=== PATIENT | female | born 1955 | race Caucasian/White ===

== ENCOUNTER 2020-08-10 13:51 | Emergency (ER) | payer MEDICAID ==
--- NOTE | 2020-08-10 16:31 | ED Physician Documentation ---
History of Present Illness - Stated complaint Stated Complaint: MHE - Chief complaint Chief Complaint: Neuro - History obtained from History obtained from: Patient, Family - Additonal information Additional information: Patient comes emergency department complaining of feeling anxious and not being able to remember any. The son states he is very concerned about the patient because he did not realize she was on medications for anxiety and depression when she moved in with him a couple of months ago, and that he has noticed a significant decline over the last month. He states that the patient gets extremely anxious and that she stays up all night trying to clean the house. She normally likes to cook but son states the patient has lost interest in doing this over this period of time. He states that she tried to cut her wrists recently and that today she told him to just shoot her because she is tired of living like this. The patient had previously lived in [place] with a "friend" who apparently is also roommate. The patient came out to visit her son, and due to some strife that had been going on with the friend/roommate, and would it was determined the patient would be better off living with her son. The patient states that her only recent stressor was the falling out with her friend, which still has not been resolved. She states that she just feels extremely anxious, but cannot really figure out why. She states she is concerned because she cannot remember anything. She has not been sleeping. Patient states she has had issues with depression and anxiety previously, as well as insomnia, but it has never been this bad. She states that normally when she could not sleep, she would just read a book and would eventually fall asleep. The patient states she is tried that this time and it does not work. She also has been on various medications over the years which were prescribed both by primary doctor and psychiatrist in [place], but she is not on any of these medications now. The patient states she has never had to be admitted for psychiatric issues. She denies any prior suicidal attempts. Review of Systems Ten Systems: 10 systems reviewed and negative Constitutional: reports: Reviewed and negative Eyes: reports: Reviewed and negative Ears: reports: Reviewed and negative Nose: reports: Reviewed and negative Throat: reports: Reviewed and negative Cardiac: reports: Reviewed and negative Respiratory: reports: Reviewed and negative GI: reports: Reviewed and negative : reports: Reviewed and negative Skin: reports: Reviewed and negative Musculoskeletal: reports: Reviewed and negative Neurologic: reports: Reviewed and negative Psychiatric: reports: Depressed, Suicidal, Anxiety, Insomnia Endocrine: reports: Reviewed and negative Immunocompromised: reports: Reviewed and negative PD PAST MEDICAL HISTORY - Present Medications Home Medications: Ambulatory Orders Medication Instructions Recorded Confirmed ALPRAZolam [Alprazolam] 0.5 mg PO BID 08/10/20 08/10/20 Cyclobenzaprine [Flexeril] 10 mg PO Q12H PRN 08/10/20 08/10/20 Losartan Potassium 100 mg PO DAILY 08/10/20 08/10/20 Tramadol HCl [Ultram] 50 mg PO Q8H PRN 08/10/20 08/10/20 bisoproloL fumarate [Bisoprolol 10 mg PO DAILY 08/10/20 08/10/20 Fumarate] - Allergies Allergies/Adverse Reactions: Allergies Allergy/AdvReac Type Severity Reaction Status Date / Time bupropion Allergy Dizziness Verified 08/10/20 13:57 clotiazepam Allergy Dizziness Verified 08/10/20 13:57 gabapentin Allergy Nausea Verified 08/10/20 13:57 hornet venom Allergy Anaphylaxis Verified 08/10/20 13:57 meloxicam [From Mobic] Allergy Nausea Verified 08/10/20 13:57 morphine Allergy Nausea Verified 08/10/20 13:57 PD ED PE NORMAL - Vitals Vital signs reviewed: Yes - General General: Alert and oriented X 3, Well developed/nourished, Other (Patient appears anxious and slightly withdrawn but otherwise no apparent distress. 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, No motor deficit, No sensory deficit, Normal speech - Psych Psych: Other (Patient is slightly withdrawn and appears anxious) Results - Vitals Vitals: Vital Signs - 24 hr 08/10/20 08/10/20 13:57 20:43 Temperature 36.5 C Heart Rate 125 H 94 Respiratory 16 22 Rate Blood Pressure 152/90 H 157/86 H O2 Saturation 98 95 Oxygen O2 Source Room air - Labs Labs: Laboratory Tests 08/10/20 08/10/20 08/10/20 16:24 16:24 16:24 WBC 7.6 RBC 4.10 L Hgb 13.3 Hct 39.2 MCV 95.6 MCH 32.4 H MCHC 33.9 RDW 12.4 Plt Count 292 MPV 9.8 Neut # (Auto) 5.6 Lymph # (Auto) 1.4 L [place] # (Auto) 0.5 Eos # (Auto) 0.0 Baso # (Auto) 0.0 Absolute Nucleated RBC 0.00 Nucleated RBC % 0.0 Sodium 139 Potassium 3.7 Chloride 105 Carbon Dioxide 23 Anion Gap 11.0 BUN 12 Creatinine 0.5 Estimated GFR (MDRD) 124 Glucose 90 Calcium 9.3 Total Bilirubin 0.8 AST 22 ALT 34 Alkaline Phosphatase 66 Total Protein 7.3 Albumin 4.4 Globulin 2.9 Albumin/Globulin Ratio 1.5 Lipase 40 TSH 0.96 Urine Color Urine Clarity Urine pH Ur Specific [place] Urine Protein Urine Glucose (UA) Urine Ketones Urine Occult Blood Urine Nitrite Urine Bilirubin Urine Urobilinogen Ur Leukocyte Esterase Urine RBC Urine WBC Ur Squamous Epith Cells Urine Bacteria Urine Mucus Ur Microscopic Review Urine Culture Comments Urine Opiates Screen Ur Oxycodone Screen Urine Methadone Screen Ur Propoxyphene Screen Ur Barbiturates Screen Ur Tricyclics Screen Ur Phencyclidine Scrn Ur Amphetamine Screen U Methamphetamines Scrn U Benzodiazepines Scrn Urine Cocaine Screen U Cannabinoids Screen 08/10/20 20:33 WBC RBC Hgb Hct MCV MCH MCHC RDW Plt Count MPV Neut # (Auto) Lymph # (Auto) [place] # (Auto) Eos # (Auto) Baso # (Auto) Absolute Nucleated RBC Nucleated RBC % Sodium Potassium Chloride Carbon Dioxide Anion Gap BUN Creatinine Estimated GFR (MDRD) Glucose Calcium Total Bilirubin AST ALT Alkaline Phosphatase Total Protein Albumin Globulin Albumin/Globulin Ratio Lipase TSH Urine Color YELLOW Urine Clarity HAZY Urine pH 6.0 Ur Specific [place] 1.020 Urine Protein NEGATIVE Urine Glucose (UA) NEGATIVE Urine Ketones 40 H Urine Occult Blood TRACE-INTA Urine Nitrite NEGATIVE Urine Bilirubin NEGATIVE Urine Urobilinogen 0.2 (NORMAL) Ur Leukocyte Esterase LARGE H Urine RBC 0-5 Urine WBC 11-25 H Ur Squamous Epith Cells FEW Squamous Urine Bacteria Few Urine Mucus Few Strands Ur Microscopic Review INDICATED Urine Culture Comments INDICATED Urine Opiates Screen NEGATIVE Ur Oxycodone Screen NEGATIVE Urine Methadone Screen NEGATIVE Ur Propoxyphene Screen NEGATIVE Ur Barbiturates Screen NEGATIVE Ur Tricyclics Screen NEGATIVE Ur Phencyclidine Scrn NEGATIVE Ur Amphetamine Screen NEGATIVE U Methamphetamines Scrn NEGATIVE U Benzodiazepines Scrn POSITIVE H Urine Cocaine Screen NEGATIVE U Cannabinoids Screen NEGATIVE PD MEDICAL DECISION MAKING - ED course Complexity details: reviewed results, re-evaluated patient, considered differential, d/w patient, d/w family ED course: I discussed with patient and son that we do a social work consult and that the patient would be medically cleared for potential inpatient treatment. She was seen initially by professor of social work in the ED, and process has been started to find pt an inpatient psychiatric bed. Pt has been signed out to Dr. Hayes, pending placement.
[2020-08-10 16:33] LABS: BASOPHILS % (AUTO) 0.4 %; EOSINOPHILS % (AUTO) 0.4 %; HGB - HEMOGLOBIN 13.3 g/dL (12.0-16.0); LYMPHOCYTES # (AUTO) 1.4 10^3/uL (1.5-3.5); LYMPHOCYTES % (AUTO) 18.2 %; MEAN CORPUSCULAR HEMOGLOBIN 32.4 pg (27.0-31.0); MEAN CORPUSCULAR HGB CONC 33.9 g/dL (32.0-36.0); MEAN CORPUSCULAR VOLUME 95.6 fL (81.0-99.0); MEAN PLATELET VOLUME 9.8 fL (7.9-10.8); MONOCYTES # (AUTO) 0.5 10^3/uL (0.0-1.0); MONOCYTES % (AUTO) 6.5 %; NEUTROPHILS # (AUTO) 5.6 10^3/uL (1.5-6.6); NEUTROPHILS % (AUTO) 74.2 %; PLT - PLATELET COUNT 292 10^3/uL (130-450); RED CELL DISTRIBUTION WIDTH 12.4 % (12.0-15.0); WHITE BLOOD COUNT 7.6 x10^3/uL (4.8-10.8)
[2020-08-10 16:44] LABS: ALBUMIN 4.4 g/dL (3.2-5.5); ALBUMIN/GLOBULIN RATIO 1.5 (1.0-2.2); BILIRUBIN,TOTAL 0.8 mg/dL (0.2-1.0); CALCIUM 9.3 mg/dL (8.5-10.3); CREATININE 0.5 mg/dL (0.4-1.0); TOTAL PROTEIN 7.3 g/dL (6.7-8.2)
[2020-08-10 20:40] LABS: MUDS CUTOFF CONCENTRATIONS CUTOFF CONC BELOW:
[2020-08-10 20:43] LABS: BILIRUBIN,URINE NEGATIVE (NEGATIVE); GLUCOSE, URINE (UA) NEGATIVE (NEGATIVE); KETONES,URINE (UA) 40 mg/dL (NEGATIVE); LEUKOCYTE ESTERASE, URINE LARGE (NEGATIVE); NITRITE,URINE NEGATIVE (NEGATIVE); OCCULT BLOOD,URINE TRACE-INTA (NEGATIVE); PROTEIN,URINE NEGATIVE (NEGATIVE); UROBILINOGEN,URINE 0.2 (NORMAL) E.U./dL (NORMAL)
[2020-08-10 20:48] LABS: CLARITY,URINE HAZY (CLEAR)
[2020-08-10 20:50] LABS: BACTERIA,URINE Few /HPF (None Seen); MUCUS,URINE Few Strands; RBC,URINE 0-5 /HPF (0-5); SQUAMOUS EPITHELIAL CELL,UR FEW Squamous (<= Few)
[2020-08-10 20:53] LABS: AMPHETAMINE SCREEN,URINE NEGATIVE (NEGATIVE); BENZODIAZEPINES SCREEN, URINE POSITIVE (NEGATIVE); COCAINE SCREEN URINE NEGATIVE (NEGATIVE); METHADONE SCREEN, URINE NEGATIVE (NEGATIVE); METHAMPHETAMINES SCREEN, URINE NEGATIVE (NEGATIVE); OPIATE SCREEN, URINE NEGATIVE (NEGATIVE); OXYCODONE SCREEN, URINE NEGATIVE (NEGATIVE); PROPOXYPHENE SCREEN, URINE NEGATIVE (NEGATIVE); TRICYCLIC ANTIDEPRESSANT,URINE NEGATIVE (NEGATIVE)
[2020-08-10] MEDS ORDERED: LORazepam 0.5 MG TABLET PO STA (21:00)
--- NOTE | 2020-08-10 21:50 | CT Report ---
PROCEDURE: HEAD WO INDICATIONS: recent fall, [place] TECHNIQUE: Noncontrast 4.5 mm thick angled axial sections acquired from the foramen magnum to the vertex. For r adiation dose reduction, the following was used: automated exposure control, adjustment of mA and/or kV according to patient size. COMPARISON: None. FINDINGS: Image quality: Excellent. CSF spaces: Basal cisterns are patent. No extra-axial fluid collections. Ventricles are normal in size and shape. Brain: No midline shift. No intracranial masses or hemorrhage. Doran-white matter interface is norm al. Skull and face: Calvarium and visualized facial bones are intact, without suspicious lesions. Sinuses: Visualized sinuses and mastoids are clear. IMPRESSION: 1. No acute intracranial process. Reviewed by: Bushra Ward MD on 08/10/2020 9:48 PM PDT Approved by: Bushra Ward MD on 08/10/2020 9:48 PM PDT Station ID: [id number]
[2020-08-10] MEDS ORDERED: traMADol 50 MG TABLET PO STA (22:21)
[2020-08-11] MEDS ORDERED: LORazepam 0.5 MG TABLET PO STA (05:14)
[2020-08-11 05:45] LABS: ACETAMINOPHEN < 10 ug/mL (10-30); SALICYLATE < 6.0 mg/dL
[2020-08-11] MEDS ORDERED: NITROFURANTOIN MACRO 100 MG CAPSULE PO SCH (09:00)
--- NOTE | 2020-08-11 12:34 | ED Physician Documentation ---
ED Addendum - Addendum Addendum: 08/11/20 12:33 Patient handed down in signout, here for voluntary psychiatric hospitalization. Social work saw her and arranged for a bed at [facility] under the care of Dr. Delgado and rosas were completed. She is stable for transport. Disposition transfer to psychiatric facility Condition stable Diagnosis: 1. Anxiety 2. Depression
[2020-08-11] MEDS ORDERED: LORazepam 1 MG TABLET PO STA (12:59)
[2020-08-11 13:38] VITALS: BP 135/87
== END 2020-08-11 14:40 ==
LOC: ED 13:51
DX: F32.9 Major depressive disorder, single episode, unspecified (principal); F41.9 Anxiety disorder, unspecified; R45.851 Suicidal ideations; Z20.828 Contact with and (suspected) exposure to other viral communicable diseases
CPT/HCPCS: 36415; 70450; 80053; 80306; 80307; 80320; 80329; 81001; 83690; 84443; 85025; 87077; 87086; 87181; 87635; 99283; 99285; A9270; J8499; 81003

== ENCOUNTER 2020-11-30 12:30 | Outpatient (CLI) | payer MEDICAID ==
--- NOTE | 2020-12-08 11:44 | Mammography Report ---
BILATERAL DIGITAL SCREENING MAMMOGRAM 3D/2D: 11/30/2020 CLINICAL: Routine screening. No prior exams were available for comparison. There are scattered fibroglandular elements in both br easts. There is an irregular high density asymmetry with an indistinct margin in the right breast at 1 o'cynthia ck posterior depth. There also is a round asymmetry with an obscured and indistinct margin in the right breast anterior d epth central to the nipple seen on the craniocaudal view only. No other significant masses, calcifications, or other findings are seen in either breast. IMPRESSION: INCOMPLETE: NEEDS ADDITIONAL IMAGING EVALUATION The irregular high density asymmetry in the right breast at 1 o'clock posterior depth most likely is a lymph node and is indeterminate. Additional views with possible ultrasound are recommended. The round asymmetry in the right breast anterior depth central to the nipple seen on the craniocaudal view only is indeterminate. Additional views with possible ultrasound are recommended. This exam was interpreted at Station ID: [id number]. NOTE: For mammograms, a report in lay terms will be sent to the patient. Approximately 15% of breast malignancies will not be visualized mammographically. In the management of a palpable breast mass, a negative mammogram must not discourage biopsy of a clinically suspicious lesion. Electronically Signed By: Griselda barillas/:12/07/2020 12:44:12 ACR BI-RADS Category 0: Incomplete 3340F PARENCHYMAL PATTERN: (A) - The breast(s) demonstrate(s) scattered fibroglandular densities. BI-RADS CATEGORY: (0) - 0 Mammo and [place] [id number] Immediate follow-up LATERALITY: (B)
== END 2020-11-30 12:31 | disposition home or self-care (01) ==
LOC: DI.N 12:30
DX: Z12.31 Encounter for screening mammogram for malignant neoplasm of breast (principal); N64.89 Other specified disorders of breast

== ENCOUNTER 2020-12-29 10:11 | Outpatient (CLI) | payer MEDICARE, MEDICAID ==
--- NOTE | 2020-12-30 08:37 | Mammography Report ---
UNILATERAL RIGHT DIGITAL DIAGNOSTIC MAMMOGRAM 3D/2D: 12/29/2020 CLINICAL: Patient returns today to evaluate a focal asymmetry in the right breast. Comparison is made to exam dated: 11/30/2020 mammogram - [facility]. There are scat tered fibroglandular elements in right breast. With focal spot compression, and additional views, the 8 mm round asymmetry seen anteriorly in the re troareolar region on screening mammography partially resolves. This is not confirmed with additional views. The posterior asymmetry on screening mammography is a benign lymph node in the right breast at 1 o'cl ock posterior depth. This is seen in additional views. No other significant masses or calcifications are seen in the breast. IMPRESSION: INCOMPLETE: NEEDS ADDITIONAL IMAGING EVALUATION The 8 mm round asymmetry in the right breast anterior depth central to the nipple seen on the cranioc audal view only is indeterminate. An ultrasound is recommended. This was performed immediately foll owing this exam. The posterior asymmetry on screening is seen in additional views as a benign lymph node. This exam was interpreted at Station ID: [id number]. NOTE: For mammograms, a report in lay terms will be sent to the patient. Approximately 15% of breast malignancies will not be visualized mammographically. In the management of a palpable breast mass, a negative mammogram must not discourage biopsy of a clinically suspicious lesion. Electronically Signed By: Griselda barillas/:12/29/2020 11:15:56 ACR BI-RADS Category 0: Incomplete 3340F PARENCHYMAL PATTERN: (A) - The breast(s) demonstrate(s) scattered fibroglandular densities. BI-RADS CATEGORY: (0) - 0 Ultrasound [id number] Immediate follow-up LATERALITY: (B)
--- NOTE | 2020-12-30 08:37 | Ultrasound Report ---
LIMITED ULTRASOUND OF RIGHT BREAST: 12/29/2020 CLINICAL: Patient returns today to evaluate a focal asymmetry in the right breast. Comparison is made to exams dated: 12/29/2020 mammogram and 11/30/2020 mammogram - [facility]. Color flow ultrasound of the right breast retroareolar was performed. Doran scale images of the real- time examination were reviewed. No significant abnormalities were seen sonographically in the right breast. Specifically, no finding to correspond to the patient's indistinct, screening mammographic abnormality. IMPRESSION: PROBABLY BENIGN There is no sonographic correlate to the patient's screening mammography asymmetry. A follow-up right mammogram in 6 months is recommended to demonstrate stability. Findings and recommendations were conveyed to the patient at time of exam. This exam was interpreted at Station ID: [id number]. Electronically Signed By: Griselda barillas/:12/29/2020 12:07:28 Ultrasound BI-RADS: 3 Probably benign BI-RADS CATEGORY: (3) - 3 Mammogram [id number] 6 month follow-up LATERALITY: (R)
== END 2020-12-29 10:12 | disposition home or self-care (01) ==
LOC: DI 10:11
PROVIDERS: ATTEND Physician Assistant
DX: R92.2 Inconclusive mammogram (principal)

== ENCOUNTER 2021-07-08 09:01 | Outpatient (CLI) | payer MEDICARE, MEDICAID | END 2021-07-08 23:59 | disposition home or self-care (01) | LOC: LAB.N 09:01 | PROVIDERS: ATTEND Physician Assistant Medical | DX: R30.0 Dysuria (principal) | CPT/HCPCS: 87086 ==

== ENCOUNTER 2021-07-11 17:00 | Outpatient (CLI) | payer MEDICARE, MEDICAID | END 2021-07-11 23:59 | disposition home or self-care (01) | LOC: LAB 17:00 | PROVIDERS: ATTEND Physician Assistant Medical | DX: N30.00 Acute cystitis without hematuria (principal) | CPT/HCPCS: 87086 ==

== ENCOUNTER 2021-07-29 08:00 | Outpatient (CLI) | payer MEDICARE, MEDICAID ==
[2021-07-29 23:32] LABS: BACTERIAL VAGINOSIS DNA NEGATIVE (NEGATIVE); CANDIDA GLABRATA DNA NEGATIVE (NEGATIVE); CANDIDA GROUP DNA NEGATIVE (NEGATIVE); CANDIDA KRUSEI DNA NEGATIVE (NEGATIVE); TRICHOMONAS VAGINALIS DNA NEGATIVE (NEGATIVE)
[2021-07-30 17:34] LABS: CHLAMYDIA TRACHOMATIS DNA NEGATIVE (NEGATIVE); NEISSERIA GONORRHOEAE DNA NEGATIVE (NEGATIVE); TRICHOMONAS VAGINALIS DNA NEGATIVE (NEGATIVE)
== END 2021-07-29 23:59 | disposition home or self-care (01) ==
LOC: LAB.N 08:00
PROVIDERS: ATTEND Family Medicine
DX: R39.9 Unspecified symptoms and signs involving the genitourinary system (principal)
CPT/HCPCS: 87086; 87491; 87591; 87661; 87801

== ENCOUNTER 2021-08-04 08:31 | Emergency (ER) | payer MEDICARE, MEDICAID ==
[2021-08-04 09:15] LABS: BASOPHILS # (AUTO) 0.1 10^3/uL (0.0-0.1); BASOPHILS % (AUTO) 0.9 %; EOSINOPHILS # (AUTO) 0.2 10^3/uL (0.0-0.7); EOSINOPHILS % (AUTO) 2.9 %; HCT - HEMATOCRIT 39.3 % (37.0-47.0); HGB - HEMOGLOBIN 13.1 g/dL (12.0-16.0); LYMPHOCYTES # (AUTO) 1.5 10^3/uL (1.5-3.5); LYMPHOCYTES % (AUTO) 22.8 %; MEAN CORPUSCULAR HGB CONC 33.3 g/dL (32.0-36.0); MEAN CORPUSCULAR VOLUME 95.9 fL (81.0-99.0); MONOCYTES # (AUTO) 0.5 10^3/uL (0.0-1.0); MONOCYTES % (AUTO) 7.8 %; NEUTROPHILS # (AUTO) 4.3 10^3/uL (1.5-6.6); NEUTROPHILS % (AUTO) 65.1 %; PLT - PLATELET COUNT 281 10^3/uL (130-450); RED CELL DISTRIBUTION WIDTH 12.2 % (12.0-15.0); WHITE BLOOD COUNT 6.6 x10^3/uL (4.8-10.8)
[2021-08-04 09:28] LABS: ALBUMIN 4.6 g/dL (3.2-5.5); ALBUMIN/GLOBULIN RATIO 1.6 (1.0-2.2); BILIRUBIN,TOTAL 0.6 mg/dL (0.2-1.0); CREATININE 0.7 mg/dL (0.4-1.0); POTASSIUM 4.1 mmol/L (3.5-5.0); TOTAL PROTEIN 7.4 g/dL (6.7-8.2)
[2021-08-04 11:46] LABS: BILIRUBIN,URINE NEGATIVE (NEGATIVE); GLUCOSE, URINE (UA) NEGATIVE (NEGATIVE); KETONES,URINE (UA) NEGATIVE (NEGATIVE); LEUKOCYTE ESTERASE, URINE NEGATIVE (NEGATIVE); NITRITE,URINE NEGATIVE (NEGATIVE); OCCULT BLOOD,URINE NEGATIVE (NEGATIVE); PH,URINE 7.5 PH (5.0-7.5); PROTEIN,URINE NEGATIVE (NEGATIVE); UROBILINOGEN,URINE 0.2 (NORMAL) E.U./dL (NORMAL)
[2021-08-04 11:47] LABS: CLARITY,URINE CLEAR (CLEAR)
--- NOTE | 2021-08-04 11:58 | ED Physician Documentation ---
PD HPI FEMALE - Stated complaint Stated Complaint: FEMALE - Chief complaint Chief Complaint: Abd Pain - History obtained from History obtained from: Patient - History of Present Illness Timing - onset: How many weeks ago (4) Timing - duration: Weeks (4) Timing - details: Gradual onset, Still present, Waxing and waning Associated symptoms: Pelvic pain (pressure), Dysuria (resolved), Urinary frequency (resolved) Contributing factors: No: Similar symptoms before: Has not had sx before Recently seen: Clinic - Additional information Additional information: 66-year-old female indicates that she had some urinary urgency frequency and dysuria was diagnosed with urinary tract infection and placed on antibiotics and had improvement in her symptoms with the exception of some pelvic fullness. She continues to have the pelvic fullness despite resolution of her urinary tract symptoms. She is come to the emergency department today for evaluation of pelvic fullness. She has had a hysterectomy she has her cervix and ovaries remaining. She denies any constipation or diarrhea, nausea or vomiting or fever chills or sweats. Review of Systems Constitutional: denies: Fever, Myalgias, Fatigue Eyes: denies: Decreased vision Ears: denies: Ear pain Nose: denies: Congestion Throat: denies: Sore throat Cardiac: denies: Chest pain / pressure Respiratory: denies: Dyspnea, Cough GI: denies: Abdominal Pain, Nausea, Vomiting, Constipation, Diarrhea : reports: Other (pelvic fullness). denies: Dysuria, Frequency Skin: denies: Rash, Lesions Musculoskeletal: denies: Neck pain, Back pain, Extremity pain Neurologic: denies: Generalized weakness, Focal weakness, Numbness PD PAST MEDICAL HISTORY - Past Medical History Psych: Anxiety, Bipolar disorder - Present Medications Home Medications: Ambulatory Orders Medication Instructions Recorded Confirmed ALPRAZolam [Alprazolam] 0.5 mg PO BID 08/10/20 08/10/20 Cyclobenzaprine [Flexeril] 10 mg PO Q12H PRN 08/10/20 08/10/20 Losartan Potassium 100 mg PO DAILY 08/10/20 08/10/20 Tramadol HCl [Ultram] 50 mg PO Q8H PRN 08/10/20 08/10/20 bisoproloL fumarate [Bisoprolol 10 mg PO DAILY 08/10/20 08/10/20 Fumarate] Nitrofurantoin Monohyd/M-Cryst 100 mg PO BID #10 capsule 08/11/20 [Macrobid 100 mg Capsule] - Allergies Allergies/Adverse Reactions: Allergies Allergy/AdvReac Type Severity Reaction Status Date / Time bupropion Allergy Dizziness Verified 08/04/21 08:56 clotiazepam Allergy Dizziness Verified 08/04/21 08:56 gabapentin Allergy Nausea Verified 08/04/21 08:56 hornet venom Allergy Anaphylaxis Verified 08/04/21 08:56 meloxicam [From Mobic] Allergy Nausea Verified 08/04/21 08:56 morphine Allergy Nausea Verified 08/04/21 08:56 - Social History Does the pt smoke?: No Smoking Status: Never smoker Does the pt drink ETOH?: Yes Does the pt have substance abuse?: No - Immunizations Immunizations are current?: Yes PD ED PE NORMAL - Vitals Vital signs reviewed: Yes (hypertensive) - General General: Alert and oriented X 3, No acute distress, Well developed/nourished - HEENT HEENT: Atraumatic, PERRL, EOMI - Neck Neck: Supple, no meningeal sign, No bony TTP - Cardiac Cardiac: RRR, No murmur - Respiratory Respiratory: No respiratory distress, Clear bilaterally - Abdomen Abdomen: Normal bowel sounds, Soft, Non distended, No organomegaly, Other (minimal suprapubic tenderness) - Back Back: No CVA TTP, No spinal TTP - Derm Derm: Normal color, Warm and dry, No rash - Extremities Extremities: No deformity, No edema - Neuro Neuro: Alert and oriented X 3, 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 operator production 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, No motor deficit, No sensory deficit, Normal speech Eye Opening: Spontaneous Motor: Obeys Commands Verbal: Oriented GCS Score: 15 - Psych Psych: Normal mood, Normal affect Results - Vitals Vitals: Vital Signs - 24 hr 08/04/21 08/04/21 08/04/21 08:51 11:39 13:58 Temperature 36.6 C 37.6 C Heart Rate 70 64 65 Respiratory 18 18 16 Rate Blood Pressure 136/85 H 143/85 H 152/91 H O2 Saturation 99 97 98 08/04/21 14:29 Temperature 36.6 C Heart Rate 66 Respiratory 14 Rate Blood Pressure 152/90 H O2 Saturation 100 Oxygen O2 Source Room air - Labs Labs: Laboratory Tests 08/04/21 08/04/21 08/04/21 09:08 09:08 11:37 WBC 6.6 RBC 4.10 L Hgb 13.1 Hct 39.3 MCV 95.9 MCH 32.0 H MCHC 33.3 RDW 12.2 Plt Count 281 MPV 10.0 Neut # (Auto) 4.3 Lymph # (Auto) 1.5 [place] # (Auto) 0.5 Eos # (Auto) 0.2 Baso # (Auto) 0.1 Absolute Nucleated RBC 0.00 Nucleated RBC % 0.0 Sodium 139 Potassium 4.1 Chloride 101 Carbon Dioxide 30 Anion Gap 8.0 BUN 15 Creatinine 0.7 Estimated GFR (MDRD) 84 L Glucose 108 H Calcium 9.0 Total Bilirubin 0.6 AST 22 ALT 29 Alkaline Phosphatase 89 Total Protein 7.4 Albumin 4.6 Globulin 2.8 Albumin/Globulin Ratio 1.6 Lipase 43 Urine Color YELLOW Urine Clarity CLEAR Urine pH 7.5 Ur Specific [place] 1.010 Urine Protein NEGATIVE Urine Glucose (UA) NEGATIVE Urine Ketones NEGATIVE Urine Occult Blood NEGATIVE Urine Nitrite NEGATIVE Urine Bilirubin NEGATIVE Urine Urobilinogen 0.2 (NORMAL) Ur Leukocyte Esterase NEGATIVE Ur Microscopic Review NOT INDICATED Urine Culture Comments NOT INDICATED - Rads (name of study) CT ab/pel with Radiology: Prelim report reviewed (Impression: 1. No acute abnormality is identified. No free fluid. No small bowel obstruction. Normal appendix. Post hysterectomy. Hepatic steatosis.), EMP read indepedently, See rad report us pelvis Radiology: Prelim report reviewed (Impression: 1. No significant sonographic abnormality.), EMP read indepedently, See rad report PD MEDICAL DECISION MAKING - ED course Complexity details: reviewed results, re-evaluated patient, considered differential, d/w patient ED course: 66-year-old female who presents the emergency department with 4 weeks of sensation of pelvic fullness has recovered from urinary tract infection and today does not have evidence of urinary tract infection. We did imaging to rule out pelvic mass and we found nothing. 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 Departure - Departure Disposition: 01 Home, Self Care Clinical Impression: Pelvic fullness in female Condition: Stable Instructions: ED Pelvic Pain [facility] Follow-Up: NORMA ESPARZA PA-C [Primary Care Provider] - [facility] [Provider Group] Yanet Kirk DO [Provider Admit Priv/Credential] - Discharge Date/Time: 08/04/21 14:42
[2021-08-04] MEDS ORDERED: IOVERSOL 320 100 ML VIAL IVP ONE ×2 (13:13→21:29)
--- NOTE | 2021-08-04 13:22 | Ultrasound Report ---
PROCEDURE: Pelvic w/Transvaginal INDICATIONS: PELVIC PRESSURE TECHNIQUE: Real-time scanning was performed of the pelvic organs, with image documentation. Additional endovagi nal scanning was necessary due to incomplete visualization of the adnexal and endometrial structures by transabdominal scanning. FINDINGS: UTERUS: The uterus is surgically absent. Hypoechoic lesions in the cervix, compatible with nabothian cysts. RIGHT OVARY: Measures 2 x 0.8 x 1.1 cm. Color-flow projects over the ovarian tissue. A hypoechoic les ion is seen within the right ovary, measuring up to 7.2 mm, compatible with a cyst. LEFT OVARY: Not visualized. OTHER: No significant pelvic fluid. IMPRESSION: 1.No significant sonographic abnormality. Reviewed by: Hermann Arnold MD on 08/04/2021 1:20 PM PDT Approved by: Hermann Arnold MD on 08/04/2021 1:20 PM PDT Station ID: [id number]
--- NOTE | 2021-08-04 13:55 | CT Report ---
PROCEDURE: Abdomen/Pelvis W INDICATIONS: Pelvic pressure CONTRAST: IV CONTRAST: Optiray 320 ml: 100 PO CONTRAST: *NO PO CONTRAST TECHNIQUE: After the administration of intravenous contrast, 5 mm thick sections acquired from the diaphragms to the symphysis. 5 mm thick coronal and sagittal reformats were acquired. For radiation dose reducti on, the following was used: automated exposure control, adjustment of mA and/or kV according to josé miguel ent size. COMPARISON: Same day pelvic ultrasound. FINDINGS: Image quality: Excellent. ABDOMEN: Lung bases: Lung bases are clear. Heart size is normal. Solid organs: Liver is normal in size. Suspect hepatic steatosis. Gallbladder is unremarkable. Ethan iary system is non dilated. Pancreas enhances normally. No splenomegaly. No adrenal nodules. Kidney s demonstrate normal size and enhancement, without hydronephrosis. Peritoneum and bowel: Bowel loops demonstrate normal wall thickness and caliber. Stomach is decompre ssed. Normal appendix. Somewhat prominent stool the colon. No free fluid or air. Nodes and vessels: No retroperitoneal or mesenteric adenopathy by size criteria. Aorta and inferior vena cava are normal in size. Mild calcified plaque. Miscellaneous: No ventral hernias. PELVIS: Genitourinary: Bladder wall thickness is normal. No bladder stones. Uterus is absent. Miscellaneous: No inguinal hernias or adenopathy. Bones: No suspicious bony lesions. Mild levoscoliosis. No vertebral body compression fractures. IMPRESSION: 1. No acute abnormality is identified. No free fluid. No small bowel obstruction. Normal appendix. 2. Post hysterectomy. 3. Hepatic steatosis. Reviewed by: Garcia Trujillo MD on 08/04/2021 1:53 PM PDT Approved by: Garcia Trujillo MD on 08/04/2021 1:53 PM PDT Station ID: [id number]
[2021-08-04 14:29] VITALS: BP 152/90
== END 2021-08-04 14:42 | disposition home or self-care (01) ==
LOC: ED 08:31
DX: R10.2 Pelvic and perineal pain (principal)
CPT/HCPCS: 36415; 74177; 76830; 76856; 80053; 81003; 83690; 85025; 99284; Q9967; 81001; 87086

== ENCOUNTER 2021-09-15 14:00 | Outpatient (CLI) | payer MEDICARE, MEDICAID ==
[2021-09-16 10:08] LABS: BILIRUBIN,URINE NEGATIVE (NEGATIVE); GLUCOSE, URINE (UA) NEGATIVE (NEGATIVE); KETONES,URINE (UA) NEGATIVE (NEGATIVE); LEUKOCYTE ESTERASE, URINE NEGATIVE (NEGATIVE); NITRITE,URINE NEGATIVE (NEGATIVE); OCCULT BLOOD,URINE NEGATIVE (NEGATIVE); PROTEIN,URINE NEGATIVE (NEGATIVE); UROBILINOGEN,URINE 0.2 (NORMAL) E.U./dL (NORMAL)
[2021-09-16 10:29] LABS: CLARITY,URINE CLEAR (CLEAR)
[2021-09-16 10:59] LABS: BACTERIA,URINE None Seen /HPF (None Seen); RBC,URINE 0-5 /HPF (0-5); SQUAMOUS EPITHELIAL CELL,UR FEW Squamous (<= Few); WBC,URINE 0-3 /HPF (0-5)
== END 2021-09-15 14:01 | disposition home or self-care (01) ==
LOC: LAB.R 14:00
PROVIDERS: ATTEND Obstetrics & Gynecology
DX: R10.30 Lower abdominal pain, unspecified (principal)
CPT/HCPCS: 81001; 87086

== ENCOUNTER 2022-02-09 14:25 | Outpatient (CLI) | payer MEDICARE, MEDICAID ==
--- NOTE | 2022-02-09 17:04 | Ultrasound Report ---
PROCEDURE: Pelvic w/Transvaginal INDICATIONS: OVARIAN CYST RIGHT SIDE TECHNIQUE: Real-time scanning was performed of the pelvic organs, with image documentation. Additional endovagi nal scanning was necessary due to incomplete visualization of the adnexal and endometrial structures by transabdominal scanning. COMPARISON: None. FINDINGS: Uterus: Status post hysterectomy. Ovaries: The right ovary measures 2.1 x 1.3 x 1.6 cm. The right ovary has a normal appearing follicl e measuring 10 x 8 x 9 mm compared to 7 x 6 x 7 mm on the prior ultrasound. The left ovary is not see n due to overlying bowel gas. Other: No free pelvic fluid. IMPRESSION: 1. No acute ultrasound abnormality. 2. Normal-appearing subcentimeter follicle in the right ovary. Reviewed by: Sagar Whitney on 02/09/2022 5:03 PM PDT Approved by: Sagar Whitney on 02/09/2022 5:03 PM PDT Station ID: [id number]
== END 2022-02-09 14:26 | disposition home or self-care (01) ==
LOC: DI 14:25
PROVIDERS: ATTEND Obstetrics & Gynecology
DX: N83.291 Other ovarian cyst, right side (principal)

== ENCOUNTER 2022-07-28 10:50 | Outpatient (CLI) | payer MEDICARE, MEDICAID ==
[2022-07-28 18:26] LABS: BASOPHILS # (AUTO) 0.1 10^3/uL (0.0-0.1); BASOPHILS % (AUTO) 0.9 %; EOSINOPHILS # (AUTO) 0.3 10^3/uL (0.0-0.7); HCT - HEMATOCRIT 39.2 % (37.0-47.0); LYMPHOCYTES # (AUTO) 1.7 10^3/uL (1.5-3.5); LYMPHOCYTES % (AUTO) 24.1 %; MEAN CORPUSCULAR HEMOGLOBIN 31.3 pg (27.0-31.0); MEAN CORPUSCULAR HGB CONC 33.2 g/dL (32.0-36.0); MEAN CORPUSCULAR VOLUME 94.2 fL (81.0-99.0); MEAN PLATELET VOLUME 10.6 fL (7.9-10.8); MONOCYTES # (AUTO) 0.6 10^3/uL (0.0-1.0); MONOCYTES % (AUTO) 7.9 %; NEUTROPHILS # (AUTO) 4.4 10^3/uL (1.5-6.6); NEUTROPHILS % (AUTO) 62.7 %; PLT - PLATELET COUNT 286 10^3/uL (130-450); RED BLOOD COUNT 4.16 10^6/uL (4.20-5.40); RED CELL DISTRIBUTION WIDTH 12.6 % (12.0-15.0); WHITE BLOOD COUNT 6.9 x10^3/uL (4.8-10.8)
[2022-07-28 18:47] LABS: THYROID STIMULATING HORMONE 2.02 uIU/mL (0.34-5.60)
[2022-07-28 18:49] LABS: ALBUMIN 4.1 g/dL (3.2-5.5); ALBUMIN/GLOBULIN RATIO 1.2 (1.0-2.2); ALKALINE PHOSPHATASE 90 IU/L (42-121); ALT ALANINE AMINOTRANSFERASE 42 IU/L (10-60); AST ASPARTATE AMINOTRANSFERASE 30 IU/L (10-42); BILIRUBIN,TOTAL 0.7 mg/dL (0.2-1.0); BUN - BLOOD UREA NITROGEN 13 mg/dL (6-20); CALCIUM 9.1 mg/dL (8.5-10.3); CARBON DIOXIDE - CO2 28 mmol/L (21-32); CHLORIDE 102 mmol/L (101-111); CHOL/HDL RATIO 5.2 (<4.4); CHOLESTEROL 236 mg/dL; CREATININE 0.6 mg/dL (0.4-1.0); GFR - MDRD 100 (>89); GLUCOSE 106 mg/dL (70-100); HDL CHOLESTEROL 45 mg/dL; LDL CHOLESTEROL,CALCULATED 159 mg/dL; LDL/HDL RATIO 3.5 (<4.4); POTASSIUM 4.3 mmol/L (3.5-5.0); SODIUM 138 mmol/L (135-145); TOTAL PROTEIN 7.4 g/dL (6.7-8.2); TRIGLYCERIDES 161 mg/dL; VLDL CHOLESTEROL 32 mg/dL
== END 2022-07-28 10:51 | disposition home or self-care (01) ==
LOC: LAB.N 10:50
PROVIDERS: ATTEND Physician Assistant
DX: E78.5 Hyperlipidemia, unspecified (principal); I10 Essential (primary) hypertension; Z79.899 Other long term (current) drug therapy
CPT/HCPCS: 36415; 80053; 80061; 83721; 84443; 85025

== ENCOUNTER 2022-07-31 13:39 | Outpatient (CLI) | payer MEDICARE, MEDICAID ==
--- NOTE | 2022-07-31 14:24 | Ultrasound Report ---
PROCEDURE: Duplex Ext Veins Right INDICATIONS: RIGHT LEG PAIN TECHNIQUE: Real-time imaging, as well as color and pulse Doppler interrogation, were performed of the lower extr emity deep veins from the inguinal ligament to the popliteal fossa. COMPARISON: None. FINDINGS: The deep veins are normally compressible, and free of intraluminal thrombus. Color and pu lse Doppler demonstrate normal phasic intraluminal flow. There is normal augmentation response to di stal compression maneuver. IMPRESSION: No deep venous thrombosis. Reviewed by: Bushra Ward MD on 07/31/2022 2:23 PM PDT Approved by: Bushra Ward MD on 07/31/2022 2:23 PM PDT Station ID: [id number]
== END 2022-07-31 13:40 | disposition home or self-care (01) ==
LOC: DI 13:39
PROVIDERS: ATTEND Family Medicine
DX: M79.604 Pain in right leg (principal)

== ENCOUNTER 2022-07-31 13:44 | Outpatient (CLI) | payer MEDICARE, MEDICAID ==
--- NOTE | 2022-07-31 16:16 | XRAY Report ---
PROCEDURE: Knee 2 View RT INDICATIONS: ARTHRITIS, RIGHT KNEE TECHNIQUE: 2 views of the right knee(s) were acquired. COMPARISON: None. FINDINGS: Bones: Mild arthrosis involving all 3 compartments. Small ossification adjacent to the proximal MCL attachment may be from prior injury. Soft tissues: Small joint effusion. IMPRESSION: Overall mild arthrosis, suspected prior injury of the MCL. Small joint effusion. If ther e is high concern for further derangement, consider MRI evaluation. Reviewed by: Timothy Oshea MD on 07/31/2022 4:14 PM PDT Approved by: Timothy Oshea MD on 07/31/2022 4:14 PM PDT Station ID: [id number]
== END 2022-07-31 13:45 | disposition home or self-care (01) ==
LOC: DI 13:44
PROVIDERS: ATTEND Family Medicine
DX: M17.11 Unilateral primary osteoarthritis, right knee (principal); M25.461 Effusion, right knee; M79.604 Pain in right leg

== ENCOUNTER 2022-08-28 12:25 | Outpatient (CLI) | payer MEDICARE, MEDICAID ==
--- NOTE | 2022-08-29 11:14 | Mammography Report ---
BILATERAL DIGITAL DIAGNOSTIC MAMMOGRAM 3D/2D: 08/28/2022 CLINICAL: Patient returns for a 6 month follow up of the right breast, due for bilateral exam. Comparison is made to exam dated: 11/30/2020 mammogram - [facility]. There are scattered areas of fibroglandular density in both breasts (category b / 25%-50% glandular t issue). No significant masses, calcifications, or other findings are seen in either breast. There has been no significant interval change. IMPRESSION: NEGATIVE There is no mammographic evidence of malignancy. A 1 year screening mammogram is recommended. Based on the Tyrer Cuzick model (a risk assessment model) the patients lifetime risk is 5.1% and her 10 year risk is 2.5%. According to the ACR, ACS, and NCCN guidelines, an annual breast MRI exam keesha g with mammogram is recommended if the patients lifetime risk is 20% or greater. This exam was interpreted at Station ID: [id number]. NOTE: For mammograms, a report in lay terms will be sent to the patient. Approximately 15% of breast malignancies will not be visualized mammographically. In the management of a palpable breast mass, a negative mammogram must not discourage biopsy of a clinically suspicious lesion. Electronically Signed By: Mak Kebede M.D., jr/renny:08/28/2022 13:08:13 ACR BI-RADS Category 1: Negative 3341F PARENCHYMAL PATTERN: (A) - The breast(s) demonstrate(s) scattered fibroglandular densities. BI-RADS CATEGORY: (1) - 1 RECOMMENDATION: (ANNUAL) - Recommend routine annual screening mammography. [id number] 1 year screening LATERALITY: (B)
== END 2022-08-28 12:26 | disposition home or self-care (01) ==
LOC: DI 12:25
PROVIDERS: ATTEND Physician Assistant
DX: R92.8 Other abnormal and inconclusive findings on diagnostic imaging of breast (principal)

== ENCOUNTER 2024-01-02 08:00 | Outpatient (CLI) | payer MEDICARE, MEDICAID ==
[2024-01-02 17:56] LABS: BILIRUBIN,URINE NEGATIVE (NEGATIVE); CLARITY,URINE CLEAR (CLEAR); GLUCOSE, URINE (UA) NEGATIVE (NEGATIVE); KETONES,URINE (UA) NEGATIVE (NEGATIVE); LEUKOCYTE ESTERASE, URINE NEGATIVE (NEGATIVE); NITRITE,URINE NEGATIVE (NEGATIVE); OCCULT BLOOD,URINE NEGATIVE (NEGATIVE); PROTEIN,URINE NEGATIVE (NEGATIVE); UROBILINOGEN,URINE 0.2 (NORMAL) E.U./dL (NORMAL)
[2024-01-02 18:08] LABS: BACTERIA,URINE None Seen /HPF (None Seen); RBC,URINE None Seen /HPF (0-5); SQUAMOUS EPITHELIAL CELL,UR RARE Squamous (<= Few); WBC,URINE 0-3 /HPF (0-5)
== END 2024-01-02 23:59 | disposition home or self-care (01) ==
LOC: LAB.WCP 08:00
PROVIDERS: ATTEND Physician Assistant
DX: R35.0 Frequency of micturition (principal)
CPT/HCPCS: 81001; 87086

== ENCOUNTER 2024-01-11 12:44 | Outpatient (CLI) | payer MEDICARE, MEDICAID ==
[2024-01-11 18:03] LABS: BASOPHILS # (AUTO) 0.1 10^3/uL (0.0-0.1); BASOPHILS % (AUTO) 0.7 %; EOSINOPHILS # (AUTO) 0.1 10^3/uL (0.0-0.7); EOSINOPHILS % (AUTO) 1.4 %; HCT - HEMATOCRIT 39.2 % (37.0-47.0); HGB - HEMOGLOBIN 12.9 g/dL (12.0-16.0); LYMPHOCYTES % (AUTO) 24.7 %; MEAN CORPUSCULAR HEMOGLOBIN 31.4 pg (27.0-31.0); MEAN CORPUSCULAR HGB CONC 32.9 g/dL (32.0-36.0); MEAN CORPUSCULAR VOLUME 95.4 fL (81.0-99.0); MEAN PLATELET VOLUME 10.7 fL (7.9-10.8); MONOCYTES # (AUTO) 0.5 10^3/uL (0.0-1.0); MONOCYTES % (AUTO) 6.2 %; NEUTROPHILS # (AUTO) 5.3 10^3/uL (1.5-6.6); NEUTROPHILS % (AUTO) 66.5 %; PLT - PLATELET COUNT 272 10^3/uL (130-450); RED BLOOD COUNT 4.11 10^6/uL (4.20-5.40); RED CELL DISTRIBUTION WIDTH 12.5 % (12.0-15.0)
[2024-01-11 18:43] LABS: ALBUMIN 4.4 g/dL (3.2-5.5); ALBUMIN/GLOBULIN RATIO 1.3 (1.0-2.2); ALKALINE PHOSPHATASE 94 IU/L (42-121); ALT ALANINE AMINOTRANSFERASE 46 IU/L (10-60); AST ASPARTATE AMINOTRANSFERASE 28 IU/L (10-42); BILIRUBIN,TOTAL 0.6 mg/dL (0.2-1.0); BUN - BLOOD UREA NITROGEN 14 mg/dL (6-20); CALCIUM 9.3 mg/dL (8.5-10.3); CARBON DIOXIDE - CO2 30 mmol/L (21-32); CHLORIDE 103 mmol/L (101-111); CHOL/HDL RATIO 4.4 (<4.4); CHOLESTEROL 205 mg/dL; CREATININE 0.6 mg/dL (0.6-1.3); GFR - MDRD 100 (>89); GLUCOSE 98 mg/dL (74-104); HDL CHOLESTEROL 47 mg/dL; LDL CHOLESTEROL,CALCULATED 125 mg/dL; LDL/HDL RATIO 2.7 (<4.4); POTASSIUM 4.2 mmol/L (3.5-4.5); SODIUM 139 mmol/L (135-145); TOTAL PROTEIN 7.8 g/dL (6.4-8.9); TRIGLYCERIDES 165 mg/dL (48-352); VLDL CHOLESTEROL 33 mg/dL
[2024-01-11 18:58] LABS: THYROID STIMULATING HORMONE 1.77 uIU/mL (0.34-5.60)
== END 2024-01-11 12:45 | disposition home or self-care (01) ==
LOC: LAB.N 12:44
PROVIDERS: ATTEND Physician Assistant
DX: I10 Essential (primary) hypertension (principal); E78.5 Hyperlipidemia, unspecified
CPT/HCPCS: 36415; 80053; 80061; 83721; 84443; 85025

== ENCOUNTER 2024-01-11 12:51 | Outpatient (CLI) | payer MEDICARE, MEDICAID ==
--- NOTE | 2024-01-12 10:48 | XRAY Report ---
PROCEDURE: Hip w/Pelvis 2-3V RT INDICATIONS: HIP PAIN, RIGHT TECHNIQUE: 2 views of the hip were acquired. COMPARISON: None. FINDINGS: Bones: No fractures or dislocations. Mild to moderate bilateral femoroacetabular joint space narrow ing and juxta-articular osteophytosis. Degenerative changes of the lower lumbar spine with levoconvex curvature. No suspicious bony lesions. Soft tissues: No suspicious soft tissue calcifications or masses. IMPRESSION: 1.No acute bony abnormality. If there remains a high clinical concern for fracture, including inabili ty to bear weight, consider cross-sectional imaging to exclude an occult fracture. 2.[id number] bilateral hip osteoarthritis. Reviewed by: Alida Rivers MD on 01/12/2024 10:46 AM PDT Approved by: Alida Rivers MD on 01/12/2024 10:46 AM PDT Station ID: [id number]
== END 2024-01-11 12:52 | disposition home or self-care (01) ==
LOC: DI.N 12:51
PROVIDERS: ATTEND Physician Assistant
DX: M16.0 Bilateral primary osteoarthritis of hip (principal)
CPT/HCPCS: 36415; 80053; 80061; 83721; 84443; 85025

== ENCOUNTER 2024-03-10 16:43 | Outpatient (CLI) | payer MEDICARE ==
--- NOTE | 2024-03-11 09:21 | Ultrasound Report ---
PROCEDURE: Pelvic w/Transvaginal INDICATIONS: OVARIAN CYST lower pelvic and hip pain TECHNIQUE: Real-time scanning was performed of the pelvic organs, with image documentation. Additional endovagi nal scanning was necessary due to incomplete visualization of the adnexal and endometrial structures by transabdominal scanning. COMPARISON: None. FINDINGS: Uterus: Uterus is surgically absent. The visible portion of the residual cervix vaginal cuff is with in normal limits. A few subcentimeter nabothian cysts are seen. Ovaries: The right ovary measures 2.2 x 1.5 x 1.2 cm, with a calculated ovarian volume of 2.1 cc. Th is is only seen by transabdominal imaging. The left ovary measures 1.2 x 0.6 x 0.9 cm, with a calcula steve ovarian volume of 0.3 cc. This ovaries only seen with transvaginal imaging. The ovaries have a n ormal sonographic appearance. No dominant follicle. No adnexal masses are seen. Other: No pathologic free abdominal or pelvic fluid. IMPRESSION: Age-appropriate ovaries size and morphology. Hysterectomy with normal-appearing residual cervix. No suspicious adnexal masses. Reviewed by: Griselda Mancilla MD on 03/11/2024 9:19 AM PDT Approved by: Griselda Mancilla MD on 03/11/2024 9:19 AM PDT Station ID: [id number]
== END 2024-03-10 16:44 | disposition home or self-care (01) ==
LOC: DI 16:43
PROVIDERS: ATTEND Physician Assistant
DX: R10.31 Right lower quadrant pain (principal)